=== PATIENT | female | born 1980 | race Caucasian/White ===

== ENCOUNTER → 2022-02-15 | Outpatient (CLI) | payer OTHER ==
[2022-02-15 18:52] LABS: Basophils # (A) 0.06 X 10*3/uL (0.00-0.10); Basophils % (A) 1.1 %; Eosinophils # (A) 0.17 X 10*3/uL (0.04-0.35); HCT 43.4 % (37.2-46.3); HGB 14.6 g/dL (12.0-15.0); Immature Grans, Automated 0.4 %; Lymphocytes # (A) 1.15 X 10*3/uL (0.90-5.00); Lymphocytes % (A) 20.2 %; MCH 30.9 pg (27.0-32.0); MCHC 33.6 g/dL (32.0-37.0); MCV 91.9 fL (80.0-97.0); Mean Platelet Volume 11.9 fL (9.5-12.2); Monocytes # (A) 0.38 X 10*3/uL (0.20-1.00); Monocytes % (A) 6.7 %; NRBC Per 100 WBC 0 /100 WBCS (0.0-0.0); Neutrophils % (A) 68.6 %; Platelet Count 186 X 10*3/uL (140-440); RBC 4.72 X 10*6/uL (4.10-5.20); WBC 5.68 X 10*3/uL (4.50-10.00)
[2022-02-15 21:44] LABS: ALT 27 U/L (8-44); AST 19 U/L (13-35); African American GFR (CKD) 94.3 (60.0-200.0); Albumin 4.6 g/dL (3.8-4.9); Albumin/Globulin Ratio 1.89 (1.60-3.17); Alkaline Phosphatase 69 U/L (41-126); BUN/Creat Ratio 17.45 Ratio (12.00-20.00); Blood Urea Nitrogen 15.3 mg/dL (9.0-27.0); Calcium 9.4 mg/dL (8.7-10.3); Carbon Dioxide 24.4 mmol/L (20.0-27.5); Chloride 105 mmol/L (96-109); Chol/HDL Ratio 3.01 Ratio; Globulin 2.4 g/dL (1.6-3.3); Glucose 93 mg/dL (70-110); LDL Cholesterol,Calculated 123.1 mg/dL (0.0-131.0); Non-African American GFR(CKD) 81.4 (60.0-200.0); Potassium 4.7 mmol/L (3.5-5.5); Sodium 140 mmol/L (135-145); VLDL Calculation 11.66 mg/dL (5.00-40.00)
== END | disposition home or self-care (01) ==
LOC: LABWHC1 11:32
PROVIDERS: ATTEND Family Medicine
DX: Z00.01 Encounter for general adult medical examination with abnormal findings (principal); E03.9 Hypothyroidism, unspecified
CPT/HCPCS: 36415; 80053; 80061; 82306; 83036; 84439; 84443; 84481; 85025

== ENCOUNTER → 2023-05-05 | Outpatient (CLI) | payer OTHER ==
[2023-05-05 13:32] LABS: BUN/Creat Ratio 21.75 Ratio (12.00-20.00); Blood Urea Nitrogen 17.4 mg/dL (9.0-27.0); Chol/HDL Ratio 3.56 Ratio; Glucose 101 mg/dL (70-110); LDL Cholesterol,Calculated 125.7 mg/dL (0.0-131.0); VLDL Calculation 15.86 mg/dL (5.00-40.00)
[2023-05-05 13:33] LABS: ALT 22 U/L (8-44); AST 22 U/L (13-35); Albumin 4.3 g/dL (3.8-4.9); Albumin/Globulin Ratio 1.95 Ratio (1.60-3.17); Alkaline Phosphatase 59 U/L (41-126); Calcium 9.2 mg/dL (8.7-10.3); Carbon Dioxide 24.6 mmol/L (21.6-31.8); Chloride 103 mmol/L (96-109); Globulin 2.2 g/dL (1.6-3.3); Potassium 4.3 mmol/L (3.5-5.5); Sodium 139 mmol/L (135-145); Total Bilirubin 0.4 mg/dL (0.3-1.2); Total Protein 6.5 g/dL (6.2-8.2)
[2023-05-05 14:45] LABS: Basophils # (A) 0.05 X 10*3/uL (0.00-0.10); Eosinophils # (A) 0.27 X 10*3/uL (0.04-0.35); Eosinophils % (A) 5.2 %; HCT 41.5 % (37.2-46.3); HGB 14.1 g/dL (12.0-15.0); Lymphocytes % (A) 21.4 %; MCH 31.4 pg (27.0-32.0); MCV 92.4 FL (80.0-97.0); Mean Platelet Volume 12.3 FL (9.5-12.2); Monocytes % (A) 7.8 %; NRBC Per 100 WBC 0 X 10*3/uL (0.00-0.01); Neutrophils # (A) 3.32 X 10*3/uL (1.80-7.70); Neutrophils % (A) 64.4 %; Platelet Count 152 X 10*3/uL (140-440); RBC 4.49 X 10*6/uL (4.10-5.20); RBC Morphology Normal (Normal); RDW 11.9 % (11.5-14.5); WBC 5.15 X 10*3/uL (4.50-10.00)
== END | disposition home or self-care (01) ==
LOC: RADXRMAIN 07:58
PROVIDERS: ATTEND Family Medicine
DX: Z00.01 Encounter for general adult medical examination with abnormal findings (principal); E55.9 Vitamin D deficiency, unspecified; E66.9 Obesity, unspecified; Z68.30 Body mass index [BMI] 30.0-30.9, adult
CPT/HCPCS: 80053; 80061; 82306; 83036; 83525; 85025